=== PATIENT | male | born 1980 | race Caucasian/White ===

== ENCOUNTER 2017-05-17 10:05 | Emergency (ER) | payer MEDICAID ==
--- NOTE | 2017-05-17 10:20 | ED Physician Chart ---
ED Chief Complaint/HPI - Patient Information Date Seen:: 05/17/17 Time Seen:: 10:12 Chief Complaint:: Sinusitis History of Present Illness:: 36 yo male developed nasal congestion and sharp pain in right maxillary area, right eye and right side of nose for 4 days. The pain is intermittent, took Sudafed and menthol with minimal relief. His nose has clear nasal secretion without any blood. Denies any ear pain or hearing impairment. The patient has been using methamphetamine for 1 years, sober for 11 days. Patient has been using right nose to sniff methamphetamine powder. He stated that this sinus pain happened before after stopping using methamphetamine and was treated with antibiotics. ED Review of Systems - Review of Systems General/Constitutional: No fever, No chills Skin: No skin lesions Head: Headache Eyes: No loss of vision ENT: Nasal drainage Neck: No neck pain Cardio Vascular: No chest pain, No palpitations Pulmonary: No SOB GI: No nausea, No vomiting Musculoskeletal: No bone or joint pain ED Past Medical History - Past Medical History Past Medical History: No significant medical hx Social History: Non Smoker (quit 11 months ago), No Alcohol, Illicit Drug Use Surgical History: None Family Medical History - Family Member Mother History Unknown: Yes ED Physical Exam - Physical Examination General/Constitutional: Awake, Alert Head: Atraumatic Eyes: PERRL, EOMI Other Eyes comments:: sweating around the eyes and face ENMT: External ears, nose nl, Oropharynx nl Other ENMT comments:: Significant amount of clear secretion in the right nasal mucosa. Red with punctate pale in the left nasal mucosa. Neck: Nontender, Full ROM w/o pain Respiratory: Clear to Auscultation, No Wheeze/Rhonchi/Rales Cardio Vascular: RRR, No murmur, gallop, rubs, NL S1 S2 GI: No tenderness/rebounding/guarding Extremities: No tenderness or effusion, No edema Neuro/Psych: No focal deficits ED Assessment - Assessment General Assessment: 36 yo male presented with pain in the right maxillary, frontal pain and tenderness with nasal congestion and secretion. It is possible sinusitis due to amphetamine use. Critical Care Time: 30 Excludes all billable procedures: Yes This condition life threatening/high prob of deterioration: No Assessment/Comments:: CBC, CMP, CK, UA and urine drug screen EKG Nasal decongestants (oxymetazoline spray) qd for 3 days Nasal irrigation with saline tid Follow up with PCP Extensive discussion on quit drug use. ED Septic Shock - . Is Septic Shock (SBP<90, OR Lactate>4 mmol\L) present?: No ED Reassessment (Disposition) - Reassessment Reassessment Condition:: Improved - Aftercare/Follow up Instructions Aftercare/Follow-Up Instructions:: Counseled pt regarding lab results/diagnosis & need follow up, Refer to Discharge Instructions - Patient Disposition Discharge/Transfer:: Home ED Discharge Plan - Patient Disposition Admit/Discharge/Transfer: PT DISCHARGED HOME Condition at Disposition: Stable Instructions: Sinusitis, [id number] Accepting Physician: Ofelia Barrett [Active] - 1-3 Days
[2017-05-17 10:55] LABS: HEMATOCRIT 42.6 % (41.0-60); HEMOGLOBIN 14.5 gm/dL (12-16); MEAN CELL VOLUME 91.1 fl (80-99); MEAN CORPUSCULAR HEMOGLOBIN 31.1 pg (26.0-30.0); MEAN CORPUSCULAR HGB CONC 34.1 pg (28.0-36.0); MEAN PLATELET VOLUME 8.2 fl; NEUTROPHILE ABSOLUTE 2.2 Th/cmm (1.8-8.0); PLATELET COUNT 206 Th/cmm (150-400); RED BLOOD COUNT 4.68 Mil/cmm (4.30-5.70); RED CELL DISTRIBUTION WIDTH 12.5 % (11.5-20.0); WHITE BLOOD COUNT 4.8 Th/cmm (4.8-10.8)
[2017-05-17 11:00] LABS: URINE BILIRUBIN NEGATIVE (NEGATIVE); URINE BLOOD NEGATIVE (NEGATIVE); URINE GLUCOSE (UA) NEGATIVE (NEGATIVE); URINE KETONE NEGATIVE (NEGATIVE); URINE PROTEIN NEGATIVE (NEGATIVE)
[2017-05-17 11:04] LABS: URINE COLOR YELLOW
[2017-05-17 11:05] LABS: URINE BACTERIA NONE SEEN /hpf (NONE SEEN); URINE EPITHELIAL CELLS NONE SEEN /lpf (FEW); URINE RBC NONE SEEN /hpf (0-5); URINE WBC NONE SEEN /hpf (0-5)
[2017-05-17 11:14] LABS: ALB/GLOB RATIO 1.6 (1.0-1.8); ALKALINE PHOSPHATASE 62 U/L (34-104); ANION GAP 6.3 (7.0-16.0); BILIRUBIN,TOTAL 0.6 mg/dL (0.3-1.0); BUN - UREA NITROGEN 12 mg/dL (7-25); CALCIUM SERUM 8.8 mg/dL (8.6-10.3); CARBON DIOXIDE 27.5 mEq/L (21.0-31.0); CHLORIDE 103 mEq/L (98-107); GLUCOSE 125 mg/dL (70-105); POTASSIUM SERUM 3.8 mEq/L (3.5-5.1); SGOT 20 U/L (13-39); SGPT/ALT 20 U/L (7-52); SODIUM SERUM 133 mEq/L (136-145)
[2017-05-17] MEDS ORDERED: OXYMETAZOLINE NS ONE (11:18)
[2017-05-17 11:24] LABS: AMPHETAMINE URINE POSITIVE (NEGATIVE); BARBITURATES URINE NEGATIVE (NEGATIVE); METHADONE URINE NEGATIVE (NEGATIVE)
== END 2017-05-17 12:35 | disposition home or self-care (01) ==
LOC: ER 10:05
DX: R68.84 Jaw pain (principal); R51 Headache
CPT/HCPCS: 36415-UA; 80053-TC; 80307; 81001-TC; 82550-TC; 85007-TC; 85027-TC; 93005; Z7502